=== PATIENT | male | born 1980 | race Caucasian/White ===

== ENCOUNTER 2016-12-30 16:50 | Outpatient (CLI) ==
[2015-03-08 11:22] VITALS: BMI 30.8
[2016-12-30 17:07] LABS: BASOPHILS # (AUTO) 0.1 K/uL (0-0.2); BASOPHILS % (AUTO) 1.1 % (0.0-3.0); EOSINOPHILS # (AUTO) 0.2 K/ul (0.0-0.7); HEMATOCRIT 47.8 % (42.0-52.0); HEMOGLOBIN 17.7 g/dl (14.0-18.0); IMMATURE GRANULOCYTE % (AUTO) 0.5 % (0.0-5.0); LYMPHOCYTES # (AUTO) 1.8 K/uL (0.60-3.4); LYMPHOCYTES % (AUTO) 22.4 (10.0-50.0); MEAN CORPUSCULAR HEMOGLOBIN 35.1 pg (27.0-31.0); MEAN CORPUSCULAR VOLUME 94.8 fl (80.0-94.0); MONOCYTES # (AUTO) 0.5 K/uL (0.4-2.0); MONOCYTES % (AUTO) 6.5 (0-10); NEUTROPHILS # (AUTO) 5.5 K/ul (2.0-6.9); NEUTROPHILS % (AUTO) 67.5; PLATELET COUNT 176 10^3/uL (140-440); RED BLOOD COUNT 5.04 10^6/ul (4.70-6.10); WHITE BLOOD COUNT 8.14 K/ul (4.2-10.2)
[2016-12-30 17:27] LABS: ALBUMIN 3.9 g/dL (3.4-5.0); ALBUMIN/GLOBULIN RATIO 1.05; ANION GAP 19.4; BILIRUBIN,TOTAL 0.98 mg/dL (0.00-1.20); BUN/CREATININE RATIO 7.07; CALCIUM 9.7 mg/dL (8.2-10.2); CHOL/HDL RATIO 5.1 (4.5-6.4); CREATININE 1.13 mg/dL (0.60-1.10); POTASSIUM 4.4 mmol/L (3.5-5.1); TOTAL PROTEIN 7.6 g/dL (6.4-8.2)
--- NOTE | 2016-12-30 22:21 | DI ---
EXAM: Two-view chest HISTORY: Wheezing COMPARISON: Single-view chest 08/12/2013 FINDINGS: The cardiomediastinal silhouette is stable.. There is no evidence of infiltrate or effus ion. Redemonstrated are multiple old healed right-sided rib fractures. IMPRESSION: No evidence of active pulmonary disease or interval change
== END 2016-12-30 16:51 | disposition home or self-care (01) ==
LOC: RAD 16:50
PROVIDERS: ATTEND General Practice
DX: R06.2 Wheezing (principal); I10 Essential (primary) hypertension; J02.9 Acute pharyngitis, unspecified
CPT/HCPCS: 36415; 80053; 80061; 85025; 87070

== ENCOUNTER 2017-03-18 16:27 | Outpatient (CLI) ==
[2015-03-08 11:22] VITALS: BMI 30.8
[2017-03-18 16:39] LABS: BASOPHILS # (AUTO) 0.1 K/uL (0-0.2); BASOPHILS % (AUTO) 1.2 % (0.0-3.0); EOSINOPHILS # (AUTO) 0.3 K/ul (0.0-0.7); EOSINOPHILS % (AUTO) 3.3 % (0.0-7.0); HEMATOCRIT 42.9 % (42.0-52.0); HEMOGLOBIN 16.1 g/dl (14.0-18.0); IMMATURE GRANULOCYTE % (AUTO) 0.4 % (0.0-5.0); LYMPHOCYTES # (AUTO) 2.3 K/uL (0.60-3.4); LYMPHOCYTES % (AUTO) 30.5 (10.0-50.0); MEAN CORPUSCULAR HEMOGLOBIN 35.7 pg (27.0-31.0); MEAN CORPUSCULAR HGB CONC 37.5 (31.8-35.4); MEAN CORPUSCULAR VOLUME 95.1 fl (80.0-94.0); MONOCYTES # (AUTO) 0.5 K/uL (0.4-2.0); MONOCYTES % (AUTO) 6.5 (0-10); NEUTROPHILS # (AUTO) 4.4 K/ul (2.0-6.9); NEUTROPHILS % (AUTO) 58.1; PLATELET COUNT 165 10^3/uL (140-440); RED BLOOD COUNT 4.51 10^6/ul (4.70-6.10); WHITE BLOOD COUNT 7.53 K/ul (4.2-10.2)
[2017-03-18 16:59] LABS: ALBUMIN 3.6 g/dL (3.4-5.0); ALBUMIN/GLOBULIN RATIO 1.03; ANION GAP 13.5; BILIRUBIN,TOTAL 0.66 mg/dL (0.00-1.20); BUN/CREATININE RATIO 7.54; CALCIUM 9.6 mg/dL (8.2-10.2); CHOL/HDL RATIO 5.2 (4.5-6.4); CREATININE 1.06 mg/dL (0.60-1.10); POTASSIUM 3.5 mmol/L (3.5-5.1); TOTAL PROTEIN 7.1 g/dL (6.4-8.2)
== END 2017-03-18 16:28 | disposition home or self-care (01) ==
LOC: LAB 16:27
PROVIDERS: ATTEND General Practice
DX: I10 Essential (primary) hypertension (principal); F10.10 Alcohol abuse, uncomplicated; Z79.899 Other long term (current) drug therapy
CPT/HCPCS: 36415; 80053; 80061; 81001; 85025

== ENCOUNTER 2017-08-01 16:32 | Outpatient (CLI) ==
[2015-03-08 11:22] VITALS: BMI 30.8
== END 2017-08-01 16:33 | disposition home or self-care (01) ==
LOC: FCC-LAB 16:32
PROVIDERS: ATTEND General Practice
DX: R05 Cough (principal); J02.9 Acute pharyngitis, unspecified; R53.83 Other fatigue
CPT/HCPCS: 87651; 87804

== ENCOUNTER 2017-10-17 23:00 | Outpatient (CLI) ==
[2015-03-08 11:22] VITALS: BMI 30.8
== END 2017-10-17 23:01 | disposition short-term general hospital (02) ==
LOC: AMBL 23:00
PROVIDERS: ATTEND Emergency Medicine
DX: S82.202B Unspecified fracture of shaft of left tibia, initial encounter for open fracture type I or II (principal); S82.402B Unspecified fracture of shaft of left fibula, initial encounter for open fracture type I or II; S81.812A Laceration without foreign body, left lower leg, initial encounter; S30.811A Abrasion of abdominal wall, initial encounter; R10.30 Lower abdominal pain, unspecified; V57.5XXA Driver of pick-up truck or van injured in collision with fixed or stationary object in traffic accident, initial encounter

== ENCOUNTER 2017-11-06 10:20 | Outpatient (RCR) ==
[2015-03-08 11:22] VITALS: BMI 30.8
== END 2017-11-06 23:59 ==
PROVIDERS: ATTEND Orthopaedic Surgery
DX: M79.605 Pain in left leg (principal)

== ENCOUNTER 2017-12-04 10:00 | Outpatient (RCR) ==
[2017-03-18 16:40] VITALS: BMI 30.8
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
--- NOTE | 2017-11-11 12:54 | RS.OPPTDN ---
Subjective Date of Note: 11/11/17 Visit #: 2 Date of Evaluation: 11/07/17 Payer Source: Insurance Treatment Diagnosis: Open L tibial fx, wound to R buttocks Current Subjective/complaints:: Patient pleasant and cooperative,c/o the L calf area bothers him the most at this time. *Precautions: TWB LLE, skin graft to calf on L Pain Assessment - Pain Description Pain Location: L LE Pain Description: Aching Current Pain Intensity: 4/10 Interventions - Exercise/Activities/Manual Therapy Exercises/Activities: 40 mins. total of gentle ankle pumps,heelslides,hip abd / adduction , SAQ , LAQhip flexion in hooklying position.Gentle L hamstring stretches. Total minutes of Exercise: 40 Manual Therapy: n/a Total minutes of Manual Therapy: 0 HOME EXERCISE PROGRAM: pt given written HEP including gentle AP, HS, hip abd/add , SLR. Discussion with pt and his father regarding working in pain free ROM. - Charges Timed Code Treatment Minutes: 40 Total Treatment Time: 45 Procedures billed for this date of service:: ex 3 Assessment: Patient fatigues easily,but does have very good eccentric and concentric control before the fatigue occurs.He reports tightness in the L calf area,but no elevated pain in the anterior aspect of L LE.He is attentive to recommendations.He is compliant to toe touch weight bearing on the L LE. Patient Education: Education of diagnosis, Body/Joint mechanics, Home Exercise Program, Home Safety, Activity Modification, Education of Plan of Care Patient demonstrates compliance with HEP?: Yes Short Term Goals Goal #1: pt ROM L knee flex 90 ext -8 Goal to be met by: 11/21/17 Progress towards Goal:: Progressing Goal #2: pt independent with initial HEP Goal to be met by: 11/21/17 Progress towards Goal:: Progressing Goal #3: pt amb in dept with wx with TWB LLE with SBA with no LOB Goal to be met by: 11/21/17 [facility] Goals Goal #1: pt ROM L knee flex 100 ext -5, L ankle DF -10 Goal to be met by: 12/05/17 Goal #2: pt independent with HEP to maintain gains after DC Goal to be met by: 12/05/17 Goal #3: pt amb in dept w rwx TWB LLE independently, to allow independence in home Goal to be met by: 12/05/17 Goal #4: Edema decreased LLE Goal to be met by: 12/05/17 Plan PLAN OF CARE EXPIRES ON:: 12/05/17 ORDER # VISITS AND/OR THROUGH DATE: 12/05/17 PLAN: Continue PT to increase L LE strength ,reduce edema return to PLOF.
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
--- NOTE | 2017-11-17 12:10 | RS.OPPTDN ---
Subjective Date of Note: 11/17/17 Visit #: 4 Date of Evaluation: 11/07/17 Payer Source: Insurance Treatment Diagnosis: Open L tibial fx, wound to R buttocks Current Subjective/complaints:: Patient reports he is working on HEP. States he is not attempting much walking at home due to weakness. States he feels he was able to walk better in therapy department today. *Precautions: TWB LLE, skin graft to calf on L Pain Assessment - Pain Description Other Comments regarding Pain:: Reports pain at the lowback and tailbone at 3-4/ 10. Reports no significant pain left lower leg. Interventions - Exercise/Activities/Manual Therapy Exercises/Activities: 49mins total. Patient amb with rwx demos no WB on the left LE, CGA to SBA 40ft increased to 3reps. Patient may perform TTWB but is comfortable with NWB at present. Pt performed gentle AP, QS, SAQ, LAQ, HS, all 3s/10reps. Passive heel cord stretching. Assisted SLR and hip abd/add 2s/ 10reps. Begins isometric ankle inversion and isometric hip adduction with ball, 3s/10reps each. In sitting, active knee flexion and isometric ham curl, 3s/ 10reps each. Alt toe taps/AP's. UE push-ups 2s/3reps. Total minutes of Exercise: 49mins Manual Therapy: n/a HOME EXERCISE PROGRAM: pt given written HEP including gentle AP, HS, hip abd/add , SLR. Discussion with pt and his father regarding working in pain free ROM. - Charges Timed Code Treatment Minutes: 49mins Total Treatment Time: 52mins Procedures billed for this date of service:: EX3 Assessment: Patient progressing well with mat exercise and with ambulation with walker. 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
--- NOTE | 2017-11-20 11:39 | RS.OPPTDN ---
Subjective Date of Note: 11/20/17 Visit #: 5 Date of Evaluation: 11/07/17 Payer Source: Insurance Treatment Diagnosis: Open L tibial fx, wound to R buttocks Current Subjective/complaints:: Patient reports working on HEP. States he saw physician yesterday and can progress left ankle ROM. He is having problems with part of left lower calf skin graft healing. *Precautions: TWB LLE, skin graft to calf on L Interventions - Exercise/Activities/Manual Therapy Exercises/Activities: 40mins total. Pt performed gentle AP, QS, SAQ, LAQ, HS, all 3s/10reps. Passive heel cord and hamstring stretching. SLR and hip abd/add 3s/10reps. Isometric ankle inversion and isometric hip adduction with ball, 3s/ 10reps each. In sitting, active knee flexion and LAQ, 3s/10reps each. Alt toe taps/AP's. Red theraband for short resistive ham curl, 2s/10reps. Additional isometric hip add and ankle inversion with ball. Began leg press at 45# with right LE only for knee ext 30reps and ankle/pf 20reps. Gait training with rwx demos no WB on the left LE, CGA to SBA 30ft x4reps. Total minutes of Exercise: EX [id number], GT x7mins Manual Therapy: n/a HOME EXERCISE PROGRAM: pt given written HEP including gentle AP, HS, hip abd/add , SLR. Discussion with pt and his father regarding working in pain free ROM. - Objective Findings Observations,measurements,etc.: Demos left knee flexion to 90 degrees and full extension today. - Charges Timed Code Treatment Minutes: 47mins Total Treatment Time: 50mins Procedures billed for this date of service:: EX3 Assessment: Patient progressing with strengtheing activity and ambulation in department. 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 Goal #1: pt ROM L knee flex 100 ext -5, L ankle DF -10 Goal to be met by: 12/05/17 Progress towards goal: Progressing Goal #2: pt independent with HEP to maintain gains after DC Goal to be met by: 12/05/17 Progress towards goal: Progressing Goal #3: pt amb in dept w rwx TWB LLE independently, to allow independence in home Goal to be met by: 12/05/17 Progress towards goal: Progressing Goal #4: Edema decreased LLE Goal to be met by: 12/05/17 Progress towards goal: Progressing Plan PLAN OF CARE EXPIRES ON:: 12/05/17 ORDER # VISITS AND/OR THROUGH DATE: 12/05/17 PLAN: Continue progressing ROM and strengthening to increase patients functional activity.
--- NOTE | 2017-11-24 12:13 | RS.OPPTDN ---
Subjective Date of Note: 11/24/17 Visit #: 6 Date of Evaluation: 11/07/17 Payer Source: Insurance Treatment Diagnosis: Open L tibial fx, wound to R buttocks Current Subjective/complaints:: Patient states he feels he is getting stronger. States he continues to have periods of weakness when standing or walking short distances at home, unsure of what is causing this. *Precautions: TWB LLE, skin graft to calf on L Pain Assessment - Pain Description Pain Location: left knee Pain Description: Tightness Current Pain Intensity: mod with active or passive flexion Interventions - Exercise/Activities/Manual Therapy Exercises/Activities: 55mins total. Pt performed gentle AP, QS, SAQ, LAQ, HS, all 3s/10reps. Passive heel cord and hamstring stretching. SLR and hip abd/add 3s/10reps. Isometric ankle inversion and isometric hip adduction with ball, 3s/ 10reps each. Assisted heel slides. Yellow theraband for ham curl and hip abd and add in hook-lying all 2s/10reps. In sitting, active knee flexion and LAQ, 3s /10reps each. Yellow theraband for ham curl in sitting, 3s/10reps. Alt toe taps/ AP's. Additional isometric hip add and ankle inversion with ball. Standing left hip abduction and hip flexion, 6s/5reps and hip extension 2s/10reps. Walking in department with RW, attempting TTWB on left LE approx 30% of the time , CGA 30ft x6reps. Total minutes of Exercise: EX 50mins, GT 5mins Manual Therapy: n/a HOME EXERCISE PROGRAM: pt given written HEP including gentle AP, HS, hip abd/add , SLR. Discussion with pt and his father regarding working in pain free ROM. - Charges Timed Code Treatment Minutes: 55mins Total Treatment Time: 55mins Procedures billed for this date of service:: EX4 Assessment: Patient gaining strength and functional endurance. Patient Education: Home Exercise Program, Home Safety, Activity Modification Comments: Instructed patient to continue scap retraction with green theraband for postural strengthening. Patient demonstrates compliance with HEP?: Yes Short Term Goals Goal #1: pt ROM L knee flex 90 ext -8 Goal to be met by: 11/21/17 Progress towards Goal:: Met Goal #2: pt independent with initial HEP Goal to be met by: 11/21/17 Progress towards Goal:: Partially Met Goal #3: pt amb in dept with wx with TWB LLE with SBA with no LOB Goal to be met by: 11/21/17 Progress towards Goal:: Partially Met Half-Way Goals Goal #1: pt ROM L knee flex 100 ext -5, L ankle DF -10 Goal to be met by: 12/05/17 Progress towards goal: Progressing Goal #2: pt independent with HEP to maintain gains after DC Goal to be met by: 12/05/17 Progress towards goal: Progressing Goal #3: pt amb in dept w rwx TWB LLE independently, to allow independence in home Goal to be met by: 12/05/17 Progress towards goal: Progressing Goal #4: Edema decreased LLE Goal to be met by: 12/05/17 Progress towards goal: Progressing Plan PLAN OF CARE EXPIRES ON:: 12/05/17 ORDER # VISITS AND/OR THROUGH DATE: 12/05/17 PLAN: Continue progressing ROM and strengthening of the left LE to increase patients functional activity level.
--- NOTE | 2017-11-27 15:55 | RS.OPPTDN ---
Subjective Date of Note: 11/27/17 Visit #: 7 Date of Evaluation: 11/07/17 Payer Source: Insurance Treatment Diagnosis: Open L tibial fx, wound to R buttocks Current Subjective/complaints:: Patient reports he saw his physician this week and must remain touch weight-bearing for another 2 weeks. *Precautions: TWB LLE, skin graft to calf on L Pain Assessment - Pain Description Pain Location: left LE, lowback and buttocks Current Pain Intensity: mild discomfort left knee and lower leg Interventions - Exercise/Activities/Manual Therapy Exercises/Activities: 50mins total. Passive heel cord and hamstring stretching. SLR and hip abd/add 3s/10reps. Isometric ankle inversion and isometric hip adduction with ball, 3s/10reps each. Heel slides. Yellow theraband for ham curl and hip abd and add in hook-lying all 2s/10reps. Left ankle isometric df and short range resistive df, 2s/10reps. SAQ 4#, 3s/10reps. In sitting, active knee flexion and LAQ with 4#, 3s/10reps each. Yellow theraband for ham curl in sitting, 3s/10reps. Alt toe taps/AP's. Standing left hip abduction, hip ext, and hip flexion, 2s/10reps. Walking in department with RW, CGA 30ft x6reps. Total minutes of Exercise: 50mins Manual Therapy: n/a HOME EXERCISE PROGRAM: pt given written HEP including gentle AP, HS, hip abd/add , SLR. Discussion with pt and his father regarding working in pain free ROM. - Charges Timed Code Treatment Minutes: 50mins Total Treatment Time: 50mins Procedures billed for this date of service:: EX3 Assessment: Patient progressing with resistive exercise. Patient Education: Home Exercise Program Patient demonstrates compliance with HEP?: Yes Short Term Goals Goal #1: pt ROM L knee flex 90 ext -8 Goal to be met by: 11/21/17 Progress towards Goal:: Met Goal #2: pt independent with initial HEP Goal to be met by: 11/21/17 Progress towards Goal:: Partially Met Goal #3: pt amb in dept with wx with TWB LLE with SBA with no LOB Goal to be met by: 11/21/17 Progress towards Goal:: Partially Met Longterm Goals Goal #1: pt ROM L knee flex 100 ext -5, L ankle DF -10 Goal to be met by: 12/05/17 Progress towards goal: Progressing Goal #2: pt independent with HEP to maintain gains after DC Goal to be met by: 12/05/17 Progress towards goal: Progressing Goal #3: pt amb in dept w rwx TWB LLE independently, to allow independence in home Goal to be met by: 12/05/17 Progress towards goal: Progressing Goal #4: Edema decreased LLE Goal to be met by: 12/05/17 Progress towards goal: Progressing Plan PLAN OF CARE EXPIRES ON:: 12/05/17 ORDER # VISITS AND/OR THROUGH DATE: 12/05/17 PLAN: Continue ROM and strengthening of the left LE.
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
== END 2017-12-06 23:59 ==
PROVIDERS: ATTEND Orthopaedic Surgery
DX: M79.605 Pain in left leg (principal); Z48.89 Encounter for other specified surgical aftercare; M25.462 Effusion, left knee; M25.472 Effusion, left ankle; M62.81 Muscle weakness (generalized); R26.2 Difficulty in walking, not elsewhere classified

== ENCOUNTER 2017-12-12 10:10 | Outpatient (RCR) ==
[2017-03-18 16:40] VITALS: BMI 30.8
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
--- NOTE | 2017-12-18 12:02 | RS.CXNS ---
Date of scheduled appointment: 12/18/17 Type: Cancel (Patient calls to cancel. Reports left knee red and swollen and he has contacted physicians office.)
--- NOTE | 2018-01-02 16:08 | RS.QUICKDC ---
Discharge from PT Date of Discharge: 01/02/18 Number of Visits: 10 Reason for Discharge: Patient attended 10 sessions progressed with strengthening exercise. He underwent another procedure for his left lower leg wound and has not had orders to return to therapy at this time. Discharge patient with HEP, as he may start therapy again at a later date with new orders.
== END 2018-01-06 23:59 ==
PROVIDERS: ATTEND Orthopaedic Surgery
DX: M79.605 Pain in left leg (principal); M25.462 Effusion, left knee; M25.472 Effusion, left ankle; M62.81 Muscle weakness (generalized); Z48.89 Encounter for other specified surgical aftercare; R26.2 Difficulty in walking, not elsewhere classified

== ENCOUNTER 2017-12-19 14:32 | Outpatient (CLI) ==
[2017-03-18 16:40] VITALS: BMI 30.8
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
== END 2017-12-19 14:33 | disposition home or self-care (01) ==
LOC: RAD 14:32
PROVIDERS: ATTEND General Practice
DX: M79.89 Other specified soft tissue disorders (principal)
CPT/HCPCS: 36415; 76882; 80053; 80061; 81001; 85025

== ENCOUNTER 2018-02-05 10:00 | Outpatient (RCR) ==
[2017-03-18 16:40] VITALS: BMI 30.8
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
--- NOTE | 2018-02-05 14:18 | RS.OPPTDN ---
Subjective Date of Note: 02/05/18 Visit #: 5 Date of Evaluation: 01/19/18 Payer Source: Insurance Treatment Diagnosis: L tibial fx s/p ORIF, wound to L calf s/p I and D Current Subjective/complaints:: Patient reports feeling stronger today. States he has difficulty with step-ups on stepper board, but is feeling safer with amb in dept with AD and CGA. *Precautions: WBAT LLE Interventions - Exercise/Activities/Manual Therapy Exercises/Activities: Began with stationary bike x5mins(not in direct time). In Sitting, left LAQ 5#, then bilateral knee ext with ball between feet, patient demos shaking with these exercises due to weakness. Ham curl increased to blue tband, 3s/10reps each. Supine, increased to 2# to Left SLR, SLR/VMO, 2s/10reps each. Increased to 7# SAQ. Green tband for left ham curl, ankle df, and red for hip abd and add. Passive stretching left heelcords. Isometric hip add and ankle inversion with ball. Stepper board for step-ups and then stepping up and over with proper sequence, frequent cues. Leg press increased to 90# for knee ext, multiple reps. Then ankle df/pf. Walking with SBQC with min to CGA with frequent cues for proper foot and cane placement, to reduce full knee extension , and to work on heel strike/toe-off. Wall slides and toe-ups with large ball. Ended with additional resisted ham curls with blue tband, LAQ with 3#, heel cord stretch, all in sitting. Total minutes of Exercise: EX 38mins/43mins, GT 15mins Manual Therapy: n/a HOME EXERCISE PROGRAM: pt given written HEP including gentle AP, HS, hip abd/add , SLR. Discussion with pt and his father regarding working in pain free ROM. - Charges Timed Code Treatment Minutes: 53mins Total Treatment Time: 58mins Procedures billed for this date of service:: EX3, GT Assessment: Patient progressing well with strengthening and gait training. Patient will need to be able to go up and down steps without handrail and assist to be able to return to living at home. Patient Education: Body/Joint mechanics, Home Exercise Program, Home Safety Patient demonstrates compliance with HEP?: Yes Short Term Goals Goal #1: L ankle ROM DF -10 PF 20 Goal to be met by: 02/02/18 Goal #2: pt independent with initial HEP Goal to be met by: 02/02/18 Progress towards Goal:: Partially Met Goal #3: pt amb in dept with rwx WBAT LLE with no LOB, able to get foot flat. Goal to be met by: 02/02/18 Progress towards Goal:: Met Mcfp Goals Goal #1: L ankle ROM DF neutral, PF WFL's Goal to be met by: 02/20/18 Goal #2: pt independent with HEP to maintain gains after DC Goal to be met by: 02/20/18 Progress towards goal: Progressing Goal #3: pt amb community distance w AAD WBAT LLE w foot flat, improved heel strike Goal to be met by: 02/20/18 Progress towards goal: Progressing Goal #4: Edema LLE equal to RLE Goal to be met by: 02/20/18 Plan PLAN OF CARE EXPIRES ON:: 02/20/18 ORDER # VISITS AND/OR THROUGH DATE: 02/20/18 PLAN: Progress toward safe and independent with amb and functional daily activities.
== END 2018-02-06 23:59 ==
PROVIDERS: ATTEND Orthopaedic Surgery
DX: M79.662 Pain in left lower leg (principal)

== ENCOUNTER 2018-02-16 10:00 | Outpatient (RCR) ==
[2017-03-18 16:40] VITALS: BMI 30.8
--- NOTE | 2018-02-10 15:12 | RS.OPPTDN ---
Subjective Date of Note: 02/10/18 Visit #: 6 Date of Evaluation: 01/19/18 Payer Source: Insurance Treatment Diagnosis: L tibial fx s/p ORIF, wound to L calf s/p I and D Current Subjective/complaints:: Patient reports he is walking short distances at home holding onto furniture for safety. States he is still only advancing left foot half steps and not step through. *Precautions: WBAT LLE Interventions - Exercise/Activities/Manual Therapy Exercises/Activities: Began with stationary bike x4mins(not in direct time). In Sitting, left LAQ 5# and blue theraband for ham curl, 3s/10reps each. Supine, increased to 2# to Left SLR, SLR/VMO, 2s/10reps each. 8# SAQ. Green tband for left ham curl and ankle df. 2# for left SLR circles cw and ccw. Passive stretching left heelcords. Began elliptical x2mins at slow but steady pace. Leg press 90# for knee ext and ankle df/pf. Walking with SBQC with min to CGA with frequent cues for proper foot and cane placement, with focus on heel strike to toe-off. Stepper board for step-ups and then stepping up and over with proper sequence, frequent cues. Wall slides and toe-ups with large ball. toe-ups facing and leaning on wall in wall push-up position. Ended with additional hamstring and heel cord stretching. 5# to left ankle while performing hip/ankle flexion and hip abd, while standing with cane on right side. Total minutes of Exercise: EX 43mins, GT 13mins Manual Therapy: n/a HOME EXERCISE PROGRAM: pt given written HEP including gentle AP, HS, hip abd/add , SLR. Discussion with pt and his father regarding working in pain free ROM. - Charges Timed Code Treatment Minutes: 56mins Total Treatment Time: 56mins Procedures billed for this date of service:: EX3, GT Assessment: Patient improving with ambulation with cane. Patient Education: Home Exercise Program, Home Safety, Activity Modification Patient demonstrates compliance with HEP?: Yes Short Term Goals Goal #1: L ankle ROM DF -10 PF 20 Goal to be met by: 02/02/18 Progress towards Goal:: Progressing Goal #2: pt independent with initial HEP Goal to be met by: 02/02/18 Progress towards Goal:: Met Goal #3: pt amb in dept with rwx WBAT LLE with no LOB, able to get foot flat. Goal to be met by: 02/02/18 Progress towards Goal:: Met Fitting Room Attendant Goals Goal #1: L ankle ROM DF neutral, PF WFL's Goal to be met by: 02/20/18 Goal #2: pt independent with HEP to maintain gains after DC Goal to be met by: 02/20/18 Progress towards goal: Progressing Goal #3: pt amb community distance w AAD WBAT LLE w foot flat, improved heel strike Goal to be met by: 02/20/18 Progress towards goal: Progressing Goal #4: Edema LLE equal to RLE Goal to be met by: 02/20/18 Plan PLAN OF CARE EXPIRES ON:: 02/20/18 ORDER # VISITS AND/OR THROUGH DATE: 02/20/18 PLAN: Progress toward safe and independent ambulation and functional activity level.
--- NOTE | 2018-02-12 16:25 | RS.OPPTDN ---
Subjective Date of Note: 02/12/18 Visit #: 7 Date of Evaluation: 01/19/18 Payer Source: Insurance Treatment Diagnosis: L tibial fx s/p ORIF, wound to L calf s/p I and D Current Subjective/complaints:: Reports ambulation continues to improve and he is feeling much more confident. *Precautions: WBAT LLE Interventions - Exercise/Activities/Manual Therapy Exercises/Activities: Began with stationary bike x5mins(not in direct time). In Sitting, left LAQ 7# and blue theraband for ham curl, 3s/10reps each. Supine, 2 # to Left SLR, 2# SLR/VMO, 2s/10reps each. 7 1/2# SAQ. Green tband for left ham curl and ankle df. 2# for left SLR circles cw and ccw. Passive stretching left heelcords. Elliptical x2mins without break. Leg press 90# for knee ext and ankle df/pf. Walking without cane in department with CGA to SBA, working on heel strike to toe-off. Stepper board for step-ups and then stepping up and over with proper sequence, frequent cues. 2# to left during step-ups and lateral step-ups. Wall slides and toe-ups with large ball. Wall push-ups. Standing scap retraction with black tband in standing. Ended with additional hamstring and heel cord stretching. Total minutes of Exercise: EX 48mins, GT 11mins Manual Therapy: n/a HOME EXERCISE PROGRAM: pt given written HEP including gentle AP, HS, hip abd/add , SLR. Discussion with pt and his father regarding working in pain free ROM. - Charges Timed Code Treatment Minutes: 48mins Total Treatment Time: 59mins Procedures billed for this date of service:: ex3, GT Assessment: Patient progressing well with ambulation. Patient Education: Body/Joint mechanics, Home Exercise Program Patient demonstrates compliance with HEP?: Yes Short Term Goals Goal #1: L ankle ROM DF -10 PF 20 Goal to be met by: 02/02/18 Progress towards Goal:: Progressing Goal #2: pt independent with initial HEP Goal to be met by: 02/02/18 Progress towards Goal:: Met Goal #3: pt amb in dept with rwx WBAT LLE with no LOB, able to get foot flat. Goal to be met by: 02/02/18 Progress towards Goal:: Met Non Destructive Evaluation Technician Goals Goal #1: L ankle ROM DF neutral, PF WFL's Goal to be met by: 02/20/18 Goal #2: pt independent with HEP to maintain gains after DC Goal to be met by: 02/20/18 Progress towards goal: Progressing Goal #3: pt amb community distance w AAD WBAT LLE w foot flat, improved heel strike Goal to be met by: 02/20/18 Progress towards goal: Progressing Goal #4: Edema LLE equal to RLE Goal to be met by: 02/20/18 Progress towards goal: Progressing Plan PLAN OF CARE EXPIRES ON:: 02/20/18 ORDER # VISITS AND/OR THROUGH DATE: 02/20/18 PLAN: Progress with strengthening to return patient to safe and independent with ambulation and functional daily activities.
--- NOTE | 2018-02-16 15:26 | RS.OPPTDN ---
Subjective Date of Note: 02/16/18 Visit #: 8 Date of Evaluation: 01/19/18 Payer Source: Insurance Treatment Diagnosis: L tibial fx s/p ORIF, wound to L calf s/p I and D Current Subjective/complaints:: Patient reports he is working on stretching and strengthening of the left foot/ankle. States he is pleased with how well he did on stairs today, will need to be able to go up 5 narrow steps to get into his home. Also, he is walking without cane and walked from parking lot to therapy department today, at slow but steady pace. States he is actively working on heel strike/toe-off and keeping left LE in neutral position. *Precautions: WBAT LLE Interventions - Exercise/Activities/Manual Therapy Exercises/Activities: In Sitting, left LAQ 7# and blue theraband for ham curl, 3s/10reps each. Supine, 2# to Left SLR, 2# SLR/VMO, 2s/10reps each. 7 1/2# SAQ. Blue tband for left ham curl and ankle df. 2# for left SLR circles cw and ccw. Red theraband hip abd and hip add. Blue theraband for resistive LTR. Bilateral hip flexion with ball between knees. Passive stretching left heelcords. Elliptical x2mins without break. Leg press 90# for knee ext and ankle df/pf. Walking in department without AD with CGA to SBA, working on heel strike to toe- off. Patient goes up and down steps with cues for proper sequence, frequent cues. Wall slides and toe-ups with large ball. Standing weight shift act on black resissstive oval. Ended with additional hamstring and heel cord stretching. Total minutes of Exercise: EX 47mins, GT 9mins Manual Therapy: n/a HOME EXERCISE PROGRAM: pt given written HEP including gentle AP, HS, hip abd/add , SLR. Discussion with pt and his father regarding working in pain free ROM. - Objective Findings Observations,measurements,etc.: Patient demos short distance amb in department without AD. He actively corrects lateral weight shift, gait sequence, and avoiding hyperextension of the left knee. - Charges Timed Code Treatment Minutes: 56mins Total Treatment Time: 56mins Procedures billed for this date of service:: EX3, GT Assessment: Patient progressing well with strengthening and with ambulation without AD. Patient Education: Education of diagnosis, Home Exercise Program, Activity Modification Patient demonstrates compliance with HEP?: Yes Short Term Goals Goal #1: L ankle ROM DF -10 PF 20 Goal to be met by: 02/02/18 Progress towards Goal:: Progressing Goal #2: pt independent with initial HEP Goal to be met by: 02/02/18 Progress towards Goal:: Met Goal #3: pt amb in dept with rwx WBAT LLE with no LOB, able to get foot flat. Goal to be met by: 02/02/18 Progress towards Goal:: Met General Manager Land Department Goals Goal #1: L ankle ROM DF neutral, PF WFL's Goal to be met by: 02/20/18 Goal #2: pt independent with HEP to maintain gains after DC Goal to be met by: 02/20/18 Progress towards goal: Progressing Goal #3: pt amb community distance w AAD WBAT LLE w foot flat, improved heel strike Goal to be met by: 02/20/18 Progress towards goal: Progressing Goal #4: Edema LLE equal to RLE Goal to be met by: 02/20/18 Progress towards goal: Progressing Plan PLAN OF CARE EXPIRES ON:: 02/20/18 ORDER # VISITS AND/OR THROUGH DATE: 02/20/18 PLAN: Progress with strengthening and gait training, working toward safe and independent with all functional activities.
--- NOTE | 2018-02-19 15:35 | RS.CXNS ---
Date of scheduled appointment: 02/19/18 Type: Cancel (Patient called to cancel appointment due to being sick today. Patient rescheduled appointments next week.)
--- NOTE | 2018-02-26 09:26 | RS.CXNS ---
Date of scheduled appointment: 02/26/18 Type: Cancel Reason for Cancel/NS: Called clinic,still not feeling well.
== END 2018-03-08 23:59 ==
PROVIDERS: ATTEND Orthopaedic Surgery
DX: M79.662 Pain in left lower leg (principal)

== ENCOUNTER 2018-04-15 08:00 | Outpatient (CLI) ==
[2017-03-18 16:40] VITALS: BMI 30.8
== END 2018-04-15 08:01 | disposition home or self-care (01) ==
LOC: WOUND 08:00
PROVIDERS: ATTEND Nurse Practitioner Family
DX: S81.822A Laceration with foreign body, left lower leg, initial encounter (principal); I10 Essential (primary) hypertension
CPT/HCPCS: 11042; 11045; 99215

== ENCOUNTER 2018-04-22 09:29 | Outpatient (CLI) ==
[2017-03-18 16:40] VITALS: BMI 30.8
== END 2018-04-22 09:30 | disposition home or self-care (01) ==
LOC: WOUND 09:29
PROVIDERS: ATTEND Nurse Practitioner Family
DX: S81.822A Laceration with foreign body, left lower leg, initial encounter (principal); I10 Essential (primary) hypertension
CPT/HCPCS: 87070; 87186

== ENCOUNTER 2018-06-10 09:20 | Outpatient (CLI) ==
[2017-03-18 16:40] VITALS: BMI 30.8
== END 2018-06-10 09:21 | disposition home or self-care (01) ==
LOC: WOUND 09:20
PROVIDERS: ATTEND Nurse Practitioner Family
DX: S81.822A Laceration with foreign body, left lower leg, initial encounter (principal); I10 Essential (primary) hypertension
CPT/HCPCS: 11042; 11045

== ENCOUNTER 2018-06-17 09:46 | Outpatient (CLI) ==
[2017-03-18 16:40] VITALS: BMI 30.8
== END 2018-06-17 09:47 | disposition home or self-care (01) ==
LOC: WOUND 09:46
PROVIDERS: ATTEND Nurse Practitioner Family
DX: S81.822A Laceration with foreign body, left lower leg, initial encounter (principal); I10 Essential (primary) hypertension
CPT/HCPCS: 11042; 11045; 87070; 87186

== ENCOUNTER 2018-06-24 09:33 | Outpatient (CLI) ==
[2017-03-18 16:40] VITALS: BMI 30.8
== END 2018-06-24 09:34 | disposition home or self-care (01) ==
LOC: WOUND 09:33
PROVIDERS: ATTEND Nurse Practitioner Family
DX: S81.822A Laceration with foreign body, left lower leg, initial encounter (principal); I10 Essential (primary) hypertension
CPT/HCPCS: 11042; 11045

== ENCOUNTER 2018-07-01 09:21 | Outpatient (CLI) ==
[2017-03-18 16:40] VITALS: BMI 30.8
== END 2018-07-01 09:22 | disposition home or self-care (01) ==
LOC: WOUND 09:21
PROVIDERS: ATTEND Nurse Practitioner Family
DX: S81.822A Laceration with foreign body, left lower leg, initial encounter (principal); I10 Essential (primary) hypertension
CPT/HCPCS: 11042; 11045

== ENCOUNTER 2018-07-08 09:26 | Outpatient (CLI) ==
[2017-03-18 16:40] VITALS: BMI 30.8
== END 2018-07-08 09:27 | disposition home or self-care (01) ==
LOC: WOUND 09:26
PROVIDERS: ATTEND Nurse Practitioner Family
DX: S81.822A Laceration with foreign body, left lower leg, initial encounter (principal); I10 Essential (primary) hypertension
CPT/HCPCS: 11042; 11045

== ENCOUNTER 2018-07-15 09:40 | Outpatient (CLI) ==
[2017-03-18 16:40] VITALS: BMI 30.8
== END 2018-07-15 09:41 | disposition home or self-care (01) ==
LOC: WOUND 09:40
PROVIDERS: ATTEND Nurse Practitioner Family
DX: S81.822A Laceration with foreign body, left lower leg, initial encounter (principal); I10 Essential (primary) hypertension
CPT/HCPCS: 11042; 11045; 87070; 87186

== ENCOUNTER 2018-07-22 09:25 | Outpatient (CLI) ==
[2017-03-18 16:40] VITALS: BMI 30.8
== END 2018-07-22 09:26 | disposition home or self-care (01) ==
LOC: WOUND 09:25
PROVIDERS: ATTEND Nurse Practitioner Family
DX: S81.822A Laceration with foreign body, left lower leg, initial encounter (principal); I10 Essential (primary) hypertension
CPT/HCPCS: 11042; 11045

== ENCOUNTER 2018-07-29 09:29 | Outpatient (CLI) ==
[2017-03-18 16:40] VITALS: BMI 30.8
== END 2018-07-29 09:30 | disposition home or self-care (01) ==
LOC: WOUND 09:29
PROVIDERS: ATTEND Nurse Practitioner Family
DX: S81.822A Laceration with foreign body, left lower leg, initial encounter (principal); I10 Essential (primary) hypertension
CPT/HCPCS: 11042; 11045

== ENCOUNTER 2018-08-05 09:35 | Outpatient (CLI) ==
[2017-03-18 16:40] VITALS: BMI 30.8
== END 2018-08-05 09:36 | disposition home or self-care (01) ==
LOC: WOUND 09:35
PROVIDERS: ATTEND Nurse Practitioner Family
DX: S81.822A Laceration with foreign body, left lower leg, initial encounter (principal); I10 Essential (primary) hypertension
CPT/HCPCS: 11042; 11045

== ENCOUNTER 2018-08-12 09:39 | Outpatient (CLI) ==
[2017-03-18 16:40] VITALS: BMI 30.8
== END 2018-08-12 09:40 | disposition home or self-care (01) ==
LOC: WOUND 09:39
PROVIDERS: ATTEND Nurse Practitioner Family
DX: S81.822A Laceration with foreign body, left lower leg, initial encounter (principal); I10 Essential (primary) hypertension

== ENCOUNTER 2018-08-19 09:28 | Outpatient (CLI) ==
[2017-03-18 16:40] VITALS: BMI 30.8
== END 2018-08-19 09:29 | disposition home or self-care (01) ==
LOC: WOUND 09:28
PROVIDERS: ATTEND Nurse Practitioner Family
DX: S81.822A Laceration with foreign body, left lower leg, initial encounter (principal); I10 Essential (primary) hypertension

== ENCOUNTER 2018-08-26 09:38 | Outpatient (CLI) ==
[2017-03-18 16:40] VITALS: BMI 30.8
== END 2018-08-26 09:39 | disposition home or self-care (01) ==
LOC: WOUND 09:38
PROVIDERS: ATTEND Nurse Practitioner Family
DX: S81.822A Laceration with foreign body, left lower leg, initial encounter (principal); I10 Essential (primary) hypertension
CPT/HCPCS: 11042; 11045

== ENCOUNTER 2018-09-01 09:30 | Outpatient (CLI) ==
[2017-03-18 16:40] VITALS: BMI 30.8
== END 2018-09-01 09:31 | disposition home or self-care (01) ==
LOC: WOUND 09:30
PROVIDERS: ATTEND Nurse Practitioner Family
DX: S81.822A Laceration with foreign body, left lower leg, initial encounter (principal); I10 Essential (primary) hypertension

== ENCOUNTER 2018-09-16 09:32 | Outpatient (CLI) ==
[2017-03-18 16:40] VITALS: BMI 30.8
== END 2018-09-16 09:33 | disposition home or self-care (01) ==
LOC: WOUND 09:32
PROVIDERS: ATTEND Nurse Practitioner Family
DX: S81.822A Laceration with foreign body, left lower leg, initial encounter (principal); I10 Essential (primary) hypertension
CPT/HCPCS: 11042; 11045

== ENCOUNTER 2018-09-23 09:27 | Outpatient (CLI) ==
[2017-03-18 16:40] VITALS: BMI 30.8
== END 2018-09-23 09:28 | disposition home or self-care (01) ==
LOC: WOUND 09:27
PROVIDERS: ATTEND Nurse Practitioner Family
DX: S81.822A Laceration with foreign body, left lower leg, initial encounter (principal); I10 Essential (primary) hypertension

== ENCOUNTER 2018-10-07 09:26 | Outpatient (CLI) ==
[2017-03-18 16:40] VITALS: BMI 30.8
== END 2018-10-07 09:27 | disposition home or self-care (01) ==
LOC: WOUND 09:26
PROVIDERS: ATTEND Nurse Practitioner Family
DX: S81.822A Laceration with foreign body, left lower leg, initial encounter (principal); I10 Essential (primary) hypertension

== ENCOUNTER 2018-10-21 09:37 | Outpatient (CLI) ==
[2017-03-18 16:40] VITALS: BMI 30.8
== END 2018-10-21 09:38 | disposition home or self-care (01) ==
LOC: WOUND 09:37
PROVIDERS: ATTEND Nurse Practitioner Family
DX: S81.822A Laceration with foreign body, left lower leg, initial encounter (principal); I10 Essential (primary) hypertension
CPT/HCPCS: 87070; 87186

== ENCOUNTER 2018-11-11 09:29 | Outpatient (CLI) ==
[2017-03-18 16:40] VITALS: BMI 30.8
== END 2018-11-11 09:30 | disposition home or self-care (01) ==
LOC: WOUND 09:29
PROVIDERS: ATTEND Nurse Practitioner Family
DX: S81.822A Laceration with foreign body, left lower leg, initial encounter (principal); I10 Essential (primary) hypertension
CPT/HCPCS: 97597; 97598

== ENCOUNTER 2018-11-27 13:02 | Outpatient (CLI) ==
[2017-03-18 16:40] VITALS: BMI 30.8
--- NOTE | 2018-11-27 13:44 | US ---
EXAM: Left lower extremity venous Doppler History: Left lower extremity pain and swelling. Technique: Multiple sonographic images through the left lower extremity were obtained. Color duplex Doppler was used to interrogate vascular flow. Findings: The left common femoral, greater saphenous, profunda, superficial femoral, popliteal, colleen isaac, posterior tibial and anterior tibial veins demonstrate spontaneous flow with normal compression and normal augmentation. There is left lower extremity subcutaneous edema. Impression: 1. No sonographic evidence for deep venous thrombosis. 2. Left lower extremity subcutaneous edema
== END 2018-11-27 13:03 | disposition home or self-care (01) ==
LOC: RAD 13:02
PROVIDERS: ATTEND General Practice
DX: S81.802D Unspecified open wound, left lower leg, subsequent encounter (principal); R60.0 Localized edema; F32.9 Major depressive disorder, single episode, unspecified; F41.8 Other specified anxiety disorders; I10 Essential (primary) hypertension; Z79.899 Other long term (current) drug therapy
CPT/HCPCS: 36415; 80053; 81001; 85025; 85651; 87070; 87186

== ENCOUNTER 2019-01-27 09:28 | Outpatient (CLI) ==
[2017-03-18 16:40] VITALS: BMI 30.8
== END 2019-01-27 09:29 | disposition home or self-care (01) ==
LOC: WOUND 09:28
PROVIDERS: ATTEND Nurse Practitioner Family
DX: S81.822A Laceration with foreign body, left lower leg, initial encounter (principal); I10 Essential (primary) hypertension

== ENCOUNTER 2019-02-03 09:25 | Outpatient (CLI) ==
[2017-03-18 16:40] VITALS: BMI 30.8
== END 2019-02-03 09:26 | disposition home or self-care (01) ==
LOC: WOUND 09:25
PROVIDERS: ATTEND Nurse Practitioner Family
DX: S81.822A Laceration with foreign body, left lower leg, initial encounter (principal); I10 Essential (primary) hypertension

== ENCOUNTER 2019-02-04 12:46 | Outpatient (CLI) ==
[2017-03-18 16:40] VITALS: BMI 30.8
== END 2019-02-04 12:47 | disposition home or self-care (01) ==
LOC: RHC-LAB 12:46
PROVIDERS: ATTEND General Practice
DX: R53.83 Other fatigue (principal); I10 Essential (primary) hypertension
CPT/HCPCS: 36415; 80053; 80061; 81001; 82607; 85025

== ENCOUNTER 2019-02-10 09:37 | Outpatient (CLI) ==
[2017-03-18 16:40] VITALS: BMI 30.8
== END 2019-02-10 09:38 | disposition home or self-care (01) ==
LOC: EEVIPCON → WOUND 09:37
PROVIDERS: ATTEND Nurse Practitioner Family
DX: S81.822A Laceration with foreign body, left lower leg, initial encounter (principal); I10 Essential (primary) hypertension
CPT/HCPCS: 97597; 97598